=== PATIENT | male | born 1980 | race African-American/Black ===

== ENCOUNTER 2019-06-17 21:26 | Emergency (ER) | payer MEDICAID, OTHER ==
[~2019-06-17] VITALS: Ht 185.4 cm; Wt 109.0 kg
[2019-06-17] MEDS ORDERED: GUAIFENESIN-DM 200MG-20MG/10ML UDC PO ONE (22:45)
[2019-06-17 23:37] VITALS: BP 155/81
== END 2019-06-17 23:38 | disposition home or self-care (01) ==
LOC: ER 22:35
DX: J20.9 Acute bronchitis, unspecified (principal); J06.9 Acute upper respiratory infection, unspecified; I10 Essential (primary) hypertension
CPT/HCPCS: 71045; 87804; 99284